=== PATIENT | female | born 1985 | race Hispanic/Latino ===

== ENCOUNTER 2017-11-26 01:01 | Emergency (ER) | payer BC ==
[~2017-11-26] VITALS: Ht 157.5 cm; Wt 61.0 kg
[~2017-11-26 01:01] MED LIST: CIPRO XR500 MG OR; FAMVIR500 MG PO; FERROUS SULF325 M1 PO; FLAGYL500 MG PO; FLUZONE SPLT1 M1 IM; MACROBID100 MG OR; PRENATAL OR; PYRIDIUM100 MG OR; TUMS500 MG PO; ULTRAM50 M1 PO; VICODIN1 TAB PO; ZOVIRAX51 EX
[2017-11-26] MEDS ORDERED: LORTAB 1010 MG PO (03:32)
[2017-11-26 03:47] VITALS: BP 114/69
== END 2017-11-26 03:43 | disposition home or self-care (01) | DRG 605 ==
LOC: ED 01:01
PROC: 2W3EX1Z Immobilization of Right Hand using Splint (ICD-10-PCS; principal; 2017-11-26)
DX: S60.211A Contusion of right wrist, initial encounter (principal); W19.XXXA Unspecified fall, initial encounter; Y92.009 Unspecified place in unspecified non-institutional (private) residence as the place of occurrence of the external cause

== ENCOUNTER 2022-01-06 12:36 | Observation (INO) | payer OTHER ==
[~2022-01-06] VITALS: Ht 157.5 cm; Wt 67.0 kg
[2022-01-06] VITALS (17 sets, daily range): BP systolic 101–120; BP diastolic 58–78
[~2022-01-06 12:36] MED LIST changes: +LORTAB 1010 MG PO
[2022-01-06 13:50] LABS: HEMATOCRIT 26.8 % (37.0-47.0); MEAN CELL VOLUME 65.7 fL CALC (80.0-100.0); MEAN CORPUSCULAR HGB 16.9 pG CALC (26.0-32.0); MEAN CORPUSCULAR HGB CONC 25.7 g/dL CAL (32.0-36.0); NEUT# 2.92 thou/uL (2.00-7.15); RED BLOOD COUNT 4.08 mill/uL (4.20-5.60); RED CELL DISTRI WIDTH 20.1 % (11.5-15.5)
[2022-01-06 13:54] LABS: HEMOGLOBIN 6.9 g/dl (12.0-16.0)
[2022-01-06 14:03] LABS: ALBUMIN 4.4 g/dL (3.2-5.0); ALKALINE PHOSPHATASE 86 u/l (38-126); ANION GAP 15 (6-22 (CALC)); BUN 7 mg/dL (7-17); BUN/CREATININE RATIO 12 (12-20 (CALC)); CARBON DIOXIDE 24 mmol/l (22-30); CHLORIDE 108 mmol/l (95-108); CREATININE 0.6 mg/dL (0.5-1.0); GFR FOR AFR.AMER. > 60 ML/MIN (>=60 (CALC)); GFR OTHER RACES > 60 ML/MIN (>=60 (CALC)); POTASSIUM 4.3 mmol/l (3.5-5.1); SGOT/AST 49 u/l (14-36); SODIUM 143 mmol/l (137-146); TOTAL PROTEIN 8.4 g/dL (6.3-8.2)
[2022-01-06 14:20] LABS: BILIRUBIN, TOTAL 0.4 mg/dL (0.0-1.4)
[2022-01-06 17:03] LABS: URINE BILIRUBIN - DIPSTICK NEGATIVE (NEGATIVE); URINE BLOOD DIPSTICK TRACE-INTACT (NEGATIVE); URINE COLOR YELLOW; URINE GLUCOSE - DIPSTICK NEGATIVE (NEGATIVE); URINE KETONE NEGATIVE (NEGATIVE); URINE LEUK ESTERASE NEGATIVE (NEGATIVE); URINE PROTEIN - DIPSTICK NEGATIVE (NEG-TRACE); URINE SPECIFIC GRAVITY >=1.030; URINE UROBILINOGEN - DIPSTICK 0.2 E.U./dL (0.2)
[2022-01-06 17:26] LABS: URINE NITRITE - DIPSTICK POSITIVE (Negative)
[2022-01-06 18:30] LABS: URINE SQUAMOUS EPITHELIAL CELL FEW EPI/hpf (0-FEW)
[2022-01-06 18:31] LABS: URINE BACTERIA MANY hpf
[2022-01-07] VITALS (16 sets, daily range): BP systolic 99–121; BP diastolic 58–74
[2022-01-07] MEDS ORDERED: OMEPRAZOLE20 MG PO (10:05)
[2022-01-07 10:35] LABS: HEMATOCRIT 24.9 % (37.0-47.0)
[2022-01-07 10:42] LABS: HEMOGLOBIN 6.8 g/dl (12.0-16.0)
== END 2022-01-07 18:36 | DRG 812 ==
LOC: ED 12:36 → ED-I 14:20 → ED 14:37 → MS2 14:38
PROVIDERS: Family Medicine; ADMIT Surgery; ATTEND Surgery
PROC: 30233N1 Transfusion of Nonautologous Red Blood Cells into Peripheral Vein, Percutaneous Approach (ICD-10-PCS; principal; 2022-01-06)
PROC: 30233N1 Transfusion of Nonautologous Red Blood Cells into Peripheral Vein, Percutaneous Approach (ICD-10-PCS; 2022-01-07)
PROC: 0DJD8ZZ Inspection of Lower Intestinal Tract, Via Natural or Artificial Opening Endoscopic (ICD-10-PCS; 2022-01-07)
PROC: 0DB98ZX Excision of Duodenum, Via Natural or Artificial Opening Endoscopic, Diagnostic (ICD-10-PCS; 2022-01-07)
PROC: 0DB78ZX Excision of Stomach, Pylorus, Via Natural or Artificial Opening Endoscopic, Diagnostic (ICD-10-PCS; 2022-01-07)
DX: D64.9 Anemia, unspecified (principal); R19.5 Other fecal abnormalities; K29.70 Gastritis, unspecified, without bleeding; K29.80 Duodenitis without bleeding; K64.8 Other hemorrhoids; Z20.822 Contact with and (suspected) exposure to COVID-19
CPT/HCPCS: G0378; J1756; P9016; S0164